=== PATIENT | female | born 1955 | race African-American/Black ===

== ENCOUNTER 2020-02-22 19:17 | Emergency (ER) | payer OTHER ==
[~2020-02-22] VITALS: Ht 160 cm; Wt 86.2 kg
[2020-02-22] MEDS ORDERED: SODIUM CHLORIDE 0.9% 1000ML 1,000 ML IV STA (19:34)
[2020-02-22] MEDS ORDERED: SODIUM CHLORIDE 0.9% 1000ML 1,000 ML ONE (19:58)
[2020-02-22] MEDS ORDERED: CEFTRIAXONE SOD 1 GM VIAL ONE (20:42)
[2020-02-22] MEDS ORDERED: CEFTRIAXONE SOD 1 GM VIAL IV ONE (20:45)
[2020-02-22] MEDS ORDERED: AZITHROMYCIN250 MG PO (22:25)
== END 2020-02-22 23:05 | disposition home or self-care (01) ==
LOC: FSED 19:36
DX: U07.1 COVID-19 (principal); J18.9 Pneumonia, unspecified organism; R05 Cough; R53.1 Weakness; M32.9 Systemic lupus erythematosus, unspecified; E03.9 Hypothyroidism, unspecified
CPT/HCPCS: 71045; 80053; 85025; 99283; J0696; J7030; U0002

== ENCOUNTER 2021-06-22 20:51 | Emergency (ER) | payer OTHER ==
[~2021-06-22] VITALS: Ht 160 cm; Wt 86.2 kg
[~2021-06-22 20:51] MED LIST: AZITHROMYCIN250 MG PO
[2021-06-22] MEDS ORDERED: KETOROLAC TROMETHAMINE 30 MG/ML VIAL IV STA (21:21)
[2021-06-22] MEDS ORDERED: KETOROLAC TROMETHAMINE 30 MG/ML VIAL ONE (22:12)
[2021-06-22] MEDS ORDERED: KETOROLAC TROME10 MG PO (22:54)
== END 2021-06-22 23:00 | disposition home or self-care (01) ==
LOC: FSED 21:20
DX: R10.9 Unspecified abdominal pain (principal); N13.30 Unspecified hydronephrosis; M32.9 Systemic lupus erythematosus, unspecified; E03.9 Hypothyroidism, unspecified
CPT/HCPCS: 74176; 80048; 80076; 81025; 85025; 96374; 99284; J1885